=== PATIENT | male | born 1990 | race Caucasian/White ===

== ENCOUNTER → 2016-11-22 | Outpatient (CLI) | payer OTHER | LOC: FIMAGING 15:08 | PROVIDERS: ATTEND Orthopaedic Surgery | DX: I82.401 Acute embolism and thrombosis of unspecified deep veins of right lower extremity (principal) ==

== ENCOUNTER 2017-12-07 18:32 | Emergency (ER) | payer OTHER ==
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
[2017-12-07] MEDS ORDERED: HYDROCOD/APAP 5/325 PREPACK#6 BTL TAKEHOME ONE (20:16)
[2017-12-07] MEDS ORDERED: HYDROCODONE/APAP 5/325 TAB PO ONE (20:16)
[2017-12-07 20:32] VITALS: BP 127/74
== END 2017-12-07 20:55 | disposition home or self-care (01) ==
LOC: CED 18:32
PROC: 2W3DX1Z Immobilization of Left Lower Arm using Splint (ICD-10-PCS; principal; 2017-12-07)
DX: S52.125A Nondisplaced fracture of head of left radius, initial encounter for closed fracture (principal); S62.232A Other displaced fracture of base of first metacarpal bone, left hand, initial encounter for closed fracture; S00.81XA Abrasion of other part of head, initial encounter; S80.212A Abrasion, left knee, initial encounter; V18.0XXA Pedal cycle driver injured in noncollision transport accident in nontraffic accident, initial encounter; Y92.410 Unspecified street and highway as the place of occurrence of the external cause
CPT/HCPCS: 73080-PO; 73110-PO; 73130-PO